=== PATIENT | female | born 1990 | race Caucasian/White ===

== ENCOUNTER 2025-08-31 10:14 | Outpatient (AMB) | payer MEDICAID, SELFPAY ==
--- NOTE | 2025-08-31 10:35 | AMB.GYNCLNOT ---
Vital Signs 08/31/25 10:42 Height 1.57 m Height Method Stated Weight 96.388 kg Weight Measurement Method Standing Scale BMI 38.8 BP 130/83 Blood Pressure Source Automatic Cuff Blood Pressure Location Right Upper Arm Position Sitting Respiration 18 Pulse 81 Pulse Source Monitor Temp 97.5 F Temp Source Temporal Artery Scan Pulse Oximetry (%) 97 Oxygen Delivery Method Room Air Allergies/Home Meds Allergies & Medications Allergies haloperidol Allergy (Severe, Verified 08/31/25 10:43) EYES ROLL BACK Medication Reconciliation calcium 600 mg (as carbonate)-vitamin D3 10 mcg (400 unit) tablet (Calcium 600 + D(3)) 1 tab PO HS ##0 03/17/15 [History Confirmed 08/31/25] benztropine 0.5 mg tablet 0.25 mg PO BID 01/14/18 [History Confirmed 08/31/25] omeprazole 20 mg capsule,delayed release 20 mg PO QDAY 01/14/18 [History Confirmed 08/31/25] lactulose 10 gram/15 mL oral solution 10 g PO HS 01/22/18 [History Confirmed 08/31/25] docusate sodium 100 mg tablet 200 mg PO BID 06/27/21 [History Confirmed 08/31/25] fluticasone propionate 50 mcg/actuation nasal spray,suspension 1 spray intranasal BID 06/27/21 [History Confirmed 08/31/25] lamotrigine 200 mg tablet 300 mg PO HS 06/27/21 [History Confirmed 08/31/25] loratadine 10 mg tablet 10 mg PO QDAY 06/27/21 [History Confirmed 08/31/25] magnesium hydroxide 400 mg/5 mL oral suspension (Milk of Magnesia) 5 ml PO QDAY 06/27/21 [History Confirmed 08/31/25] norethindrone-e.estradiol triphasic 0.5 mg/0.75 mg/1 mg-35 mcg tablet 1 tab PO QDAY 06/27/21 [History Confirmed 08/31/25] olanzapine 20 mg tablet 25 mg PO HS 06/27/21 [History Confirmed 08/31/25] sodium chloride 0.2 % nasal spray 1 spray intranasal DAILY 06/27/21 [History Confirmed 08/31/25] Alu-Mag Plus Simethicone 30 ml PO Q4H PRN Heartburn 03/25/22 [History Confirmed 08/31/25] acetaminophen 325 mg tablet 325 mg PO Q6H PRN myalgia 03/25/22 [History Confirmed 08/31/25] dextromethorphan-guaifenesin 10 mg-100 mg/5 mL oral syrup 10 ml PO Q4H PRN Allergy Symptoms 07/27/22 [History Confirmed 08/31/25] Intake Visit Data Collection New Patient or Established: New Patient (never been to [facility]) Reason for Visit:: REFERRAL BC CONSULT Seen by Clinical Staff ONLY (RN/MA): No Etl Architect Required: No Do You Feel Safe at Home: Yes Authorities Contacted: N/A PCP or OBGYN visit in last 3 months: Yes Date of Last PCP or OBGYN visit: 07/28/25 Hx Now: No Are you currently on any form of Control: Yes Last menstrual period: 08/24/25 Pain Present Currently: No Pain Scale Used: Conteh-Burgos/Numerical Pain scale:: 0 Smoking Status Smoking Status: Unknown if ever smoked Immunizations Flu Vaccine in the Last 12 Months: Yes Flu Vaccine Exclusion Criteria: Already Received 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 Menstrual regularity: regular Flow: normal Monthly: Yes How many days does period last: 7 Age at menarche: 13 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: Past Medical History Past Medical History: Yes Hx Neurological Disorders (mother used alcohol and drugs in ), No Hx Cardiac Disorders, No Hx Cancer, Yes Hx Blood Disorders (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 1. Little interest or pleasure in doing things: not at all 2. Feeling down, depressed, or hopeless: not at all Total score: 0 PHQ-9 3. Trouble falling or staying asleep, or sleeping too much: Not at all 4. Feeling tired or having little energy: Not at all 5. Poor appetite or overeating: Not at all 6. Feeling bad about yourself - or that you are a failure or have let yourself or your family down: Not at all 7. Trouble concentrating on things, such as reading the newspaper or watching television: Not at all 8. Moving or speaking so slowly that other people could have noticed? - Or the opposite - being so fidgety or restless that you have been moving around a lot more than usual: not at all 9. Thoughts that you would be better off or of hurting yourself in some way: Not at all Total score: 0 If you checked off any problems, how difficult have these problems made it for you to do your work, take care of things at home, or get along with other people?: not difficult at all Source: Developed by Drs. Dale Downing, Perla Justice, Reynaldo Henry and colleagues, with an educational lacey from [employer]. Depression screen completed yes Social History Living Situation History Marital Status: Single Housing: [facility] Housing Other:: pt lives at [facility] Tobacco History Smoking Status: Unknown if ever smoked Second Hand Smoke Exposure: No Alcohol History Alcohol Intake: Never Domestic Abuse History Do You Feel Safe at Home: Yes History of Present Illness HPI Narrative Chief Complaint Desires to switch from current control to Nexplanon implant due to nausea and fatigue with current control Patient presents requesting to switch from her current control to Nexplanon implant due to side effects from her current contraceptive method. She reports having been on control for a long time. She is experiencing gastrointestinal symptoms, describing that her stomach feels sick after taking her current control medication. Additionally, she reports fatigue, stating that the medication makes her tired. She continues to have regular menstrual cycles on her current contraceptive regimen. Medications: - control - causes stomach upset and fatigue Exam General General Appearance: alert, in no apparent distress and healthy appearing Head Head exam: atraumatic Neck Neck exam: Present normal inspection and trachea midline Chest Chest inspection: Present normal inspection and symmetric chest wall rise External exam: Present normal external exam; Absent tenderness Neuro Neurological exam: Present oriented X3 Psych Psychiatric exam: Present normal affect and normal mood Assessment & Plan Diagnosis / Problem List (1) General counseling for initiation of other contraceptive measures: Status: Acute Plan Contraceptive method change request Assessment: Patient desires to switch from current control method to Nexplanon implant due to adverse effects including nausea and fatigue from current contraceptive. Patient reports gastrointestinal symptoms occurring after taking current control medication and experiencing tiredness. Clinical concern for possible anemia based on reported fatigue symptoms. Plan: - Order blood tests including hormonal evaluation prior to Nexplanon placement - Schedule follow-up appointment for implant insertion after laboratory results review - Review blood test results at next visit before proceeding with Nexplanon placement
[2025-08-31 10:42] VITALS: BP 130/83; PULSE 81; RESP 18; TEMP 36.4; O2SAT 97; BMI 38.8
== END 2025-08-31 10:55 | disposition home or self-care (01) ==
LOC: HODSOBC 10:14
PROVIDERS: Supervising Provider Obstetrics & Gynecology; Visit Provider Obstetrics & Gynecology
DX: Z30.017 Encounter for initial prescription of implantable subdermal contraceptive (principal)
CPT/HCPCS: 99203; G0463

== ENCOUNTER 2025-10-06 13:26 | Outpatient (AMB) | payer MEDICAID, SELFPAY ==
[2025-10-06 13:56] VITALS: BP 114/63; PULSE 82; RESP 16; TEMP 36.4; O2SAT 98; BMI 37.5
--- NOTE | 2025-10-06 13:56 | GYNCLNT_ITS ---
Vital Signs 10/06/25 13:56 Height 1.57 m Height Method Stated Weight 92.703 kg Weight Measurement Method Standing Scale BMI 37.5 BP 114/63 Blood Pressure Source Automatic Cuff Blood Pressure Location Left Upper Arm Position Sitting Respiration 16 Pulse 82 Pulse Source Monitor Temp 97.5 F Temp Source Oral Pulse Oximetry (%) 98 Oxygen Delivery Method Room Air Allergies/Home Meds Allergies & Medications Allergies haloperidol Allergy (Severe, Verified 10/06/25 13:57) EYES ROLL BACK Medication Reconciliation calcium 600 mg (as carbonate)-vitamin D3 10 mcg (400 unit) tablet (Calcium 600 + D(3)) 1 tab PO HS ##0 03/17/15 [History Confirmed 10/06/25] benztropine 0.5 mg tablet 0.25 mg PO BID 01/14/18 [History Confirmed 10/06/25] omeprazole 20 mg capsule,delayed release 20 mg PO QDAY 01/14/18 [History Confirmed 10/06/25] lactulose 10 gram/15 mL oral solution 10 g PO HS 01/22/18 [History Confirmed 10/06/25] docusate sodium 100 mg tablet 200 mg PO BID 06/27/21 [History Confirmed 5] fluticasone propionate 50 mcg/actuation nasal spray,suspension 1 spray intranasal BID 06/27/21 [History Confirmed 10/06/25] lamotrigine 200 mg tablet 300 mg PO HS 06/27/21 [History Confirmed 10/06/25] loratadine 10 mg tablet 10 mg PO QDAY 06/27/21 [History Confirmed 10/06/25] magnesium hydroxide 400 mg/5 mL oral suspension (Milk of Magnesia) 5 ml PO QDAY 06/27/21 [History Confirmed 10/06/25] norethindrone-e.estradiol triphasic 0.5 mg/0.75 mg/1 mg-35 mcg tablet 1 tab PO QDAY 06/27/21 [History Confirmed 10/06/25] olanzapine 20 mg tablet 25 mg PO HS 06/27/21 [History Confirmed 10/06/25] sodium chloride 0.2 % nasal spray 1 spray intranasal DAILY 06/27/21 [History Confirmed 10/06/25] Alu-Mag Plus Simethicone 30 ml PO Q4H PRN Heartburn 03/25/22 [History Confirmed 10/06/25] acetaminophen 325 mg tablet 325 mg PO Q6H PRN myalgia 03/25/22 [History Confirmed 10/06/25] dextromethorphan-guaifenesin 10 mg-100 mg/5 mL oral syrup 10 ml PO Q4H PRN Allergy Symptoms 07/27/22 [History Confirmed 10/06/25] Intake Visit Data Collection New Patient or Established: Established Patient (seen at [facility] within 3 years) Reason for Visit:: NEXPLANON INSERTION Seen by Clinical Staff ONLY (RN/MA): No Yeast Pumper Required: No Do You Feel Safe at Home: Yes Authorities Contacted: N/A PCP or OBGYN visit in last 3 months: Yes Hx Now: No Are you currently on any form of Control: No Pain Present Currently: No Pain Scale Used: Conteh-Burgos/Numerical Pain scale:: 0 Smoking Status Smoking Status: Never smoker Immunizations Flu Vaccine in the Last 12 Months: Yes Flu Vaccine Exclusion Criteria: Already 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 Menstrual regularity: irregular Flow: heavy Monthly: Yes How many days does period last: 7 Age at menarche: 12 Currently sexually active: No If not currently sexually active, have you ever been sexually active: Yes 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: Past Medical History Past Medical History: Yes Hx Neurological Disorders (mother used alcohol and drugs in ), No Hx Cardiac Disorders, No Hx Cancer, Yes Hx Blood Disorders (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 1. Little interest or pleasure in doing things: not at all 2. Feeling down, depressed, or hopeless: not at all Total score: 0 PHQ-9 3. Trouble falling or staying asleep, or sleeping too much: Not at all 4. Feeling tired or having little energy: Not at all 5. Poor appetite or overeating: Not at all 6. Feeling bad about yourself - or that you are a failure or have let yourself or your family down: Not at all 7. Trouble concentrating on things, such as reading the newspaper or watching television: Not at all 8. Moving or speaking so slowly that other people could have noticed? - Or the opposite - being so fidgety or restless that you have been moving around a lot more than usual: not at all 9. Thoughts that you would be better off or of hurting yourself in some way: Not at all Total score: 0 Source: Developed by Drs. Dale Downing, Perla Justice, Reynaldo Henry and colleagues, with an educational lacey from [email or web address]. Depression screen completed yes Social History Living Situation History Housing: [facility] Housing Other:: pt lives at [facility] Tobacco History Smoking Status: Never smoker Second Hand Smoke Exposure: No Alcohol History Alcohol Intake: Never Domestic Abuse History Do You Feel Safe at Home: Yes History of Present Illness HPI Narrative Eliana Smith is a 34-year-old female presenting for follow-up from a recent evaluation where she had requested an implant. The patient underwent placement of a Nexplanon contraceptive implant in the left bicipital groove during this visit, which she had never received previously. The implant was placed after local anesthesia was administered. The patient was counseled that this contraceptive method would make her periods agile qa tester and provide multiple benefits. The patient is currently confined at a mental health facility. ROS: Negative except as stated above, limited to FLOUR MIXER and pertinent complaints. Exam General General Appearance: alert, in no apparent distress and healthy appearing Head Head exam: atraumatic Neck Neck exam: Present normal inspection and trachea midline Chest Chest inspection: Present normal inspection and symmetric chest wall rise External exam: Present normal external exam; Absent tenderness Neuro Neurological exam: Present oriented X3 Psych Psychiatric exam: Present normal affect and normal mood Office Procedures O[facility] Clinic LOC & Office Proc's Nursing/Assessment Patient Status: Established Patient OB Clinic Nursing Assessment: Medication Reconciliation, Update PMH in EMR and Vital Signs OB Clinic Coordination of Care: Complex Care and Chronic Disease 1-5, Consent,records obtained, informed consent, Education Simp Pt/Fam, 1 Ins Authorization, Lab and Imaging orders, Results/Orders obtained and Staff clarify orders Established Patient Charge Established Patient Point Assignment: 120 Established Patient Point Charge: EP Level 4 (120-155) Injection/Vaccine Admin SQ Im Injection: Yes In Clinic Bedside tests/procedures Bedside HCG: Yes In Clinic Procedures Insertion of Control other NOT IUD's: Yes Minor Surgical Procedure: Yes Assessment & Plan Diagnosis / Problem List (1) General counseling for initiation of other contraceptive measures: Status: Acute (2) Nexplanon insertion: Status: Acute Plan Contraceptive Counseling: - Patient requested contraceptive implant during recent evaluation. - This is her first contraceptive implant placement. Procedure Note: - Nexplanon subdermal implant inserted in left bicipital groove - Procedure performed using standard sterile technique - Local anesthesia administered prior to insertion Plan: - Contraceptive implant placed subcutaneously in non-dominant arm using standard sterile technique with local anesthesia. - Keep bandage on for 24 hours. - Patient counseled that implant will make periods agile qa tester and provides effective contraception. 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 Local anesthesia was administered to the inner side of the upper non-dominant arm. Using a sterile technique, the Nexplanon implant was inserted subdermally at the marked site, 8- 10 cm above the medial epicondyle. The device was placed in the subcutaneous tissue, and the skin was closed with a sterile dressing. No immediate complications were noted, and the patient tolerated the procedure well.
== END 2025-10-06 14:03 | disposition home or self-care (01) ==
LOC: HODSOBC 13:26
PROVIDERS: Supervising Provider Obstetrics & Gynecology; Visit Provider Obstetrics & Gynecology
DX: Z30.017 Encounter for initial prescription of implantable subdermal contraceptive (principal); Z32.02 Encounter for pregnancy test, result negative
CPT/HCPCS: 11981; 81025; 96372; 99214; J3490; J7301; G0463